=== PATIENT | female | born 1950 | race Caucasian/White ===

== ENCOUNTER → 2017-01-05 | Outpatient (CLI) | payer MEDICARE, MEDICAID ==
[2017-01-05 07:54] LABS: INR - (THERAPEUTIC) 2.5 (0.9-1.1); PROTIME 28.1 SECONDS (9.6-11.1)
== END | disposition disaster alternative care site (69) ==
LOC: LHULL 07:36
PROVIDERS: Family Medicine
DX: Z51.81 Encounter for therapeutic drug level monitoring (principal); Z79.01 Long term (current) use of anticoagulants